=== PATIENT | female | born 1950 | race Caucasian/White ===

== ENCOUNTER → 2019-04-11 | Outpatient (CLI) | payer BC ==
[2019-02-21 06:15] VITALS: BP 148/78
[~2019-04-11] MED LIST: ALEN70TA6 PO; ALLO100T PO; HYDR-3164 PO; LOSA100T14 PO; MELO15TA23 PO; PRAV40TA2 PO; PROP60CA8 PO; RANI15SY PO; SPIR25TA5 PO
--- NOTE | 2019-04-11 13:05 | KCIC ---
MR of the right shoulder HISTORY: Shoulder pain, injury February 21. TECHNIQUE: Routine multiplanar sequences are obtained. FINDINGS: Acromioclavicular joint is degenerative, with mild hypertrophy. Small subacromial spur. Rotator cuff tendinosis. Full-thickness rotator cuff tear of the supraspinatus tendon at the critical zone measuring about 8 mm AP by 5 mm wide. Additional full-thickness tear at the anterior supraspinatus tendon footprint attachment measuring 1 cm diameter. Mild partial tearing of the subscapularis tendon. Mild fluid in the subdeltoid bursa. Aovy-fm-tyiwqafs rotator cuff muscle atrophy. Small glenohumeral joint effusion. Blunting of the superior labrum with mild heterogeneous signal compatible with degeneration. No clear-cut labral detachment. Biceps tendon is poorly seen. No bone destruction or acute fracture. IMPRESSION: 1. Small full-thickness rotator cuff tear of the anterior supraspinatus footprint, and also at the critical zone. 2. Superior labral degeneration or chronic tear. 3. Nonvisualized biceps tendon, suspect tear. Electronically signed by: Temo Hill MD (04/11/2019 1:02 PM) [facility]
== END | disposition home or self-care (01) ==
LOC: KCIC MRI 08:55
PROVIDERS: ATTEND Orthopaedic Surgery
DX: S46.211A Strain of muscle, fascia and tendon of other parts of biceps, right arm, initial encounter (principal); S46.012A Strain of muscle(s) and tendon(s) of the rotator cuff of left shoulder, initial encounter; X58.XXXA Exposure to other specified factors, initial encounter; Y93.89 Activity, other specified; Y92.89 Other specified places as the place of occurrence of the external cause; Y99.8 Other external cause status; M75.81 Other shoulder lesions, right shoulder
CPT/HCPCS: 73221

== ENCOUNTER 2020-11-06 20:04 | Emergency (ER) | payer OTHER ==
[~2020-11-06] VITALS: Ht 157.5 cm; Wt 90.0 kg
[~2020-11-06 20:04] MED LIST changes: -ALEN70TA6 PO; +ALEN70TA71 PO; +PROP60CA36 PO; -PROP60CA8 PO
[2020-11-06] MEDS ORDERED: ONDANSETRON PF 4 MG/2 ML VIAL. IVP ONE (21:00)
[2020-11-06] MEDS ORDERED: ACETAMINOPHEN 325 MG TABLET. PO ONE (21:00)
--- NOTE | 2020-11-06 21:03 | PHYS DOC ---
Past Medical History Past Medical History: Arthritis, High Cholesterol, Hypertension Past Surgical History: Appendectomy, Tonsillectomy Additional Past Surgical Histo: CATARACT SURG. Smoking Status: Never Smoker Alcohol Use: None Drug Use: None General Adult EDM: Chief Complaint: PAIN ON URINATION HPI: HPI: Patient is a 70 year old female presents with a chief complaint of urinary tract infection. Patient states she has had urinary frequency urgency difficulty urinating for 1 week. Patient states pain was in her bilateral flanks and suprapubic region. Patient states she has been febrile she reports nausea and vomiting. Review of Systems: Review of Systems: Review of systems: Constitutional symptoms- No fever, no chills. Eyes- No Discharge, No Visual Loss Respiratory symptoms- No shortness of breath, No wheezing, No Dyspnea on Exertion Cardiovascular Systems; No chest pain, No Palpitations, No syncope Gastrointestinal symptoms: NO abdominal pain, as it of nausea positive vomiting Genitourinary symptoms: Positive urinary frequency positive dysuria positive urgency Musculoskeletal symptoms: No back pain No extremity pain. NEUROLOGICAL Symptoms: No headache, no generalized weakness; No focal Weakness Heart Score: C/O Chest Pain: N/A Risk Factors: Risk Factors: DM, Current or recent (<one month) smoker, HTN, HLP, family h istory of CAD, obesity. Risk Scores: Score 0 - 3: 2.5% MACE over next 6 weeks - Discharge Home Score 4 - 6: 20.3% MACE over next 6 weeks - Admit for Clinical Observation Score 7 - 10: 72.7% MACE over next 6 weeks - Early Invasive Strategies Allergies: Allergies: Allergies Coded Allergies Type Severity Reaction Last Updated Verified morphine Allergy Intermediate RASH 02/21/19 Yes Physical Exam: PE: General: alert, no acute distress. Skin: warm, dry and intact. Head:: Normocephalic, atraumatic. Neck: Trachea midline. Eyes: EOMI, Normal conjunctiva, No drainage CARDIOVASCULAR: Regular rate and rhythm RESPIRATORY: No respiratory distress Back: Full range of motion. MUSCULOSKELETAL: Full range of motion of bilateral upper and lower extremities. GASTROINTESTINAL: Abdomen soft without rebound or guarding. NEUROLOGICAL: Alert and noted to person, place and time. No neurological deficits observed Psychiatric: Cooperative. Normal judgment Current Patient Data: Vital Signs: Vital Signs Date Time Temp Pulse Resp B/P (MAP) Pulse Ox O2 Delivery O2 Flow Rate FiO2 11/06/20 20:20 98.2 98 16 146/89 (108) 98 Room Air 98.2 EKG: EKG: [] Radiology/Procedures: Radiology/Procedures: [] Course & Med Decision Making: Course & Med Decision Making Pertinent Labs and Imaging studies reviewed. (See chart for details) [] Treatment included Zofran and Rocephin. Patient's urine consistent with a urinary tract infection. Post treatment with Zofran nausea improved. Patient be discharged home with Macrobid Pyridium and Zofran. Dragon Disclaimer: Dragon Disclaimer: This electronic medical record was generated, in whole or in part, using a voice recognition dictation system. Departure Departure Impression: Primary Impression: Urinary tract infection Disposition: HOME SELF CARE/HOMELESS Condition: STABLE Referrals: ANTOINE MURRAY MD (PCP) Patient Instructions: Urinary Tract Infection Scripts Phenazopyridine Hcl (PYRIDIUM) 200 Mg Tablet 1 TAB PO TID for urinary discomfort for 2 Days, #6 TAB 0 Refills Prov: ROMAN LONG DO 11/06/20 Ondansetron Hcl (ZOFRAN) 4 Mg Tablet 1 TAB PO Q6HRS, #20 TAB Prov: ROMAN LONG DO 11/06/20 Nitrofurantoin Monohyd/M-Cryst (MACROBID 100 MG CAPSULE) 100 Mg Capsule 1 CAP PO BID for 5 Days, #10 CAP 0 Refills Prov: ROMAN LONG DO 11/06/20 ROMAN LONG DO Nov 06, 2020 21:03
[2020-11-06 22:21] LABS: BILIRUBIN,URINE NEGATIVE (NEG); CLARITY,URINE CLEAR; COLOR,URINE YELLOW; NITRITE,URINE NEGATIVE (NEG); PH,URINE 5.5 (<5.0-8.0); PROTEIN,URINE NEGATIVE (NEG-TRACE); UROBILINOGEN,URINE 0.2 mg/dL (0.2 mg/dL)
[2020-11-06 22:22] LABS: BASO # 0.1 x10^3/uL (0.0-0.2); BASO % 1 % (0-3); EOS % 0 % (0-3); HEMATOCRIT 39.9 % (36.0-47.0); HEMOGLOBIN 13.3 g/dL (12.0-15.5); LYMPH # 1.1 x10^3/uL (1.0-4.8); LYMPH % 8 % (24-48); MEAN CORPUSCULAR HEMOGLOBIN 33 pg (25-35); MEAN CORPUSCULAR HGB CONC 33 g/dL (31-37); MEAN CORPUSCULAR VOLUME 98 fL (79-100); MONO # 1.4 x10^3/uL (0.0-1.1); MONO % 10 % (0-9); NEUT # 11.5 x10^3/uL (1.8-7.7); NEUT % 82 % (31-73); PLATELET COUNT 236 x10^3/uL (140-400); RED BLOOD COUNT 4.08 x10^6/uL (3.50-5.40); RED CELL DISTRIBUTION WIDTH 13.3 % (11.5-14.5)
[2020-11-06 22:27] LABS: BACTERIA,URINE MANY /HPF (0-FEW); RBC,URINE OCC /HPF (0-2); WBC,URINE TNTC /HPF (0-4)
[2020-11-06 22:31] LABS: CALCIUM 10.1 mg/dL (8.5-10.1); CREATININE 0.7 mg/dL (0.6-1.0); GFR 83.2; POTASSIUM 3.6 mmol/L (3.5-5.1)
[2020-11-06 22:37] LABS: ALBUMIN 3.6 g/dL (3.4-5.0); TOTAL BILIRUBIN 0.9 mg/dL (0.2-1.0); TOTAL PROTEIN 7.3 g/dL (6.4-8.2)
[2020-11-06 22:56] VITALS: BP 145/66
[2020-11-06] MEDS ORDERED: ONDA4TAB7 PO (22:58)
[2020-11-06] MEDS ORDERED: NITR100C62 PO (22:58)
[2020-11-06] MEDS ORDERED: PHEN-318 PO (22:58)
[2020-11-06] MEDS ORDERED: cefTRIAXone IV Push 1 GM VIAL. IVP ONE (23:00)
== END 2020-11-06 23:10 | disposition home or self-care (01) ==
LOC: ER 20:04
DX: N39.0 Urinary tract infection, site not specified (principal); R35.0 Frequency of micturition; R11.2 Nausea with vomiting, unspecified; M19.90 Unspecified osteoarthritis, unspecified site; E78.00 Pure hypercholesterolemia, unspecified; I10 Essential (primary) hypertension; Z90.89 Acquired absence of other organs; Z98.890 Other specified postprocedural states; Z88.6 Allergy status to analgesic agent
CPT/HCPCS: 36415; 80053; 81001; 85025; 87086; 96374; 96375; 99284; J0696; J2405